=== PATIENT | male | born 1945 | race Two or more races ===

== ENCOUNTER 2017-06-20 15:57 | Emergency (ER) | payer OTHER ==
[2017-06-20 16:02] VITALS: RESP 16
--- NOTE | 2017-06-20 16:25 | EDPHY ---
H & P Stated Complaint: R SIDED ABDOMINAL PAIN FOR ONE WEEK Time Seen by Provider: 06/20/17 16:25 - Personal History Current Tetanus/Diphtheria Vaccine: Unsure - Medical/Surgical History Hx Asthma: No Hx Chronic Respiratory Disease: No Hx Diabetes: No Hx Cardiac Disease: No Hx Renal Disease: No Hx Cirrhosis: No Hx Alcoholism: No Hx HIV/AIDS: No Hx Splenectomy or Spleen Trauma: No Other PMH: HTN - Social History Smoking Status: Never smoked Constitutional: Initial Vital Signs Temperature (C) 37 C 06/20/17 15:59 Heart Rate 67 06/20/17 15:59 Respiratory Rate 16 06/20/17 15:59 Blood Pressure 141/83 H 06/20/17 15:59 O2 Sat (%) 92 06/20/17 15:59 O2 Delivery Mode Room Air Allergies/Adverse Reactions: No Known Allergies Allergy (Unverified 06/20/17 16:03) Home Medications: Medication Instructions Recorded Another Med For Bp 06/20/17 Metoprolol 06/20/17 Medical Decision Making - Diagnostics Imaging Results: Imaging Impressions Extremity Ultrasound 06/20/17 16:42 Impression: 1. Direct inguinal hernia suspected right groin containing omental fat without inclusion of bowel. Findings discussed with Jimmy Estevez MD at 17:18 hour, 06/20/2017. Imaging: Discussed imaging studies w/ manager call center Radiologist ED Course/Re-evaluation: CHIEF COMPLAINT: Right inguinal pain HISTORY OF PRESENT ILLNESS: The patient is a [place]-speaking 72 y/o male who is accompanied by a family member, he is complaining of right inguinal pain associated with a lump, that he believes is a hernia. He states that he sometimes feels pain in this region and cannot walk straight. The exacerbated pain began 8 days ago, which he tried to treat with an elastic band. He denies previous history of this pain. Denies chest pain, dyspnea, nausea, and vomiting. Family at bedside translated for me. REVIEW OF SYSTEMS: A 10 point review of systems was performed and is negative with the exception of the elements mentioned in the history of present illness. PHYSICAL EXAM: HR, BP, O2 Sat, RR. Temp noted General Appearance: Alert, well hydrated, appropriate, and non-toxic appearing. Head: Atraumatic without scalp tenderness or obvious injury Eyes: Pupils equal, round, reactive to light and accommodation, EOMI, no trauma , no injection. Ears: Clear bilaterally, no perforation, normal landmarks Nose: Atraumatic, no rhinorrhea, clear. Throat: Mucus membranes moist. Neck: Supple, nontender, no lymphadenopathy. Respiratory: No retractions, no distress, no wheezes, and no accessory muscle use. Lungs are clear to auscultation bilaterally. Cardiovascular: Regular rate and rhythm, no murmurs, rubs, or gallops. Good capillary refill all extremities. Gastrointestinal: Right inguinal tenderness, no evidence of an incarcerated hernia, there is evidence of a reducible hernia. Otherwise abdomen is soft, nontender, non-distended, no masses, no rebound, no guarding, no peritoneal signs. Musculoskeletal: Normal active ROM of all extremities, atraumatic. Neurological: Alert, appropriate, and interactive. Non-focal neuro. Skin: No rashes, good turgor, no nodules on palpation. Past medical history: Hypertension Past surgical history: None Family history: None Social history: Family member at bedside. DIAGNOSTICS/PROCEDURES/CRITICAL CARE TIME: Ultrasound: Direct small right inguinal hernia, spoke with , radiologist. DIFFERENTIAL DIAGNOSIS: The differential diagnosis for the patient's abdominal pain included but was not limited to appendicitis, cholecystitis, hernias, testicular torsion, gastritis, and urinary tract infection. MEDICAL DECISION MAKING: The patient is a 72 y/o male who presents with an eight day history of right inguinal pain. Right inguinal tenderness upon palpation. There is no evidence of an incarcerated hernia; there is evidence of a reducible hernia. Plan for an ultrasound to rule out right inguinal hernia. Patient declines pain medication at this time. Reassessed patient and discussed imaging findings. Abdomen is benign. Return precautions were given. Patient is comfortable with this plan. Departure - Departure Disposition: Home, Routine, Self-Care Clinical Impression: Inguinal hernia Qualifiers: Obstruction and gangrene presence: without obstruction or gangrene Laterality: unilateral Recurrence: not specified as recurrent Qualified Code(s): K40.90 - Unilateral inguinal hernia, without obstruction or gangrene, not specified as recurrent Condition: Good Instructions: Inguinal Hernia (ED) Additional Instructions: 1. Follow up with Dr. Munson, general surgeon, without fail in the next 2-3 days. 2. Return to the ED for severe or worsening pain, inability to have a bowel movement, uncontrollable vomiting, fever, or if you are unable push the hernia back in. Referrals: Mauro Munson MD [Medical Doctor] - As per Instructions Report Scribed for: Jimmy Estevez Report Scribed by: Mela Valenzuela Date of Report: 06/20/17 Time of Report: 16:38
[2017-06-20 18:02] VITALS: BP 132/83; PULSE 79; TEMP 98.6; O2SAT 96
== END 2017-06-20 18:00 | disposition home or self-care (01) ==
DX: K40.90 Unilateral inguinal hernia, without obstruction or gangrene, not specified as recurrent (principal); I10 Essential (primary) hypertension